=== PATIENT | female | born 1960 | race Caucasian/White ===

== ENCOUNTER → 2017-12-03 16:11 | Outpatient (CLI) | payer OTHER, SELFPAY ==
[2017-12-09 09:29] LABS: HPV Reflexed? NOT INDICATED
== END ==
PROVIDERS: Visit Provider Obstetrics & Gynecology
DX: Z12.4 Encounter for screening for malignant neoplasm of cervix (principal)
CPT/HCPCS: 88175; G0145

== ENCOUNTER → 2020-02-29 | Outpatient (CLI) | payer OTHER, SELFPAY ==
[2017-12-25 07:57] VITALS: BMI 22.1
[2020-03-02 18:27] LABS: HPV Reflexed? NOT INDICATED
== END | disposition home or self-care (01) ==
LOC: LABSPEC 11:37
PROVIDERS: PCP Family Medicine; Visit Provider Obstetrics & Gynecology
DX: Z12.4 Encounter for screening for malignant neoplasm of cervix (principal)
CPT/HCPCS: 88175; G0145

== ENCOUNTER → 2021-09-04 | Outpatient (CLI) | payer OTHER, SELFPAY ==
[2021-09-07 16:14] LABS: HPV Reflexed? NOT INDICATED
== END | disposition home or self-care (01) ==
LOC: LABSPEC 13:57
PROVIDERS: PCP Family Medicine; Visit Provider Obstetrics & Gynecology
DX: Z12.4 Encounter for screening for malignant neoplasm of cervix (principal)
CPT/HCPCS: 88175; G0145

== ENCOUNTER 2021-10-30 11:15 | Day surgery (SDC) | payer SELFPAY, OTHER ==
--- NOTE | 2021-10-30 11:56 | PCM.HP.BLA ---
History and Physical Date of Admission: 10/30/21 ISAÍAS FOX, is a 60 F who presents to the office today for recent C. difficile colitis. She developed diarrhea at the end of February 2021 no prior history of diarrhea.? She had urgency, fecal incontinence, abdominal cramping.? There was mucus as well as blood in the stool.? She tried dietary changes with only minimal relief.? Symptoms did seem to improve however returned with a vengeance in May and June.? At that time she tested positive for C. difficile.? She has had complete resolution of symptoms with vancomycin treatment.? No prior history of C. difficile.? She had not been on antibiotics.? She had poor appetite before treatment, she lost 10 pounds.? Bowels are now regular.? She has a bowel movement approximately 4 times per week, no constipation, no straining.? No further blood in the stool.? Weight has stabilized.? Appetite is back to normal.? She has no nausea, vomiting, heartburn, dysphagia.? No abdominal pain. 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 She is very healthy, she is not on any medications.? She occasionally needs antibiotics for UTI. ROS Const Constitutional: No fatigue ENT ENT: No difficulty swallowing Gastro GI: Positive for bloating, constipation and excessive flatus; No abdominal pain, belching, change in bowel habits, change in stool character, coffee ground emesis, cramping, diarrhea, heartburn, difficulty swallowing, feeling full early, incontinent of stools, Vomiting blood/hematemesis, Blood in stool, loose stools, Black,tarry stools, nausea/dyspepsia, pain with swallowing, vomiting or other Musc Musculoskeletal: No joint pain Skin Skin: No yellowing of the eye or itchy eyes Psych Psychiatric: No anxiety and No depression Endo Endocrine: No fatigue Aller/Imm Allergy/Immunologic: No itchy eyes Augustine/Lymp Hematologic/Lymphatic: No easy bleeding or easy bruising Exam Const General: healthy appearing, comfortable, well developed and well groomed Nutritional Appearance: average body habitus Eyes General: appearance normal, both eyes and all related structures Resp Effort & Inspection: normal respiratory effort GI Inspection: normal to inspection Quality Reporting Tobacco Screening ([facility]) Smoking Status: Never smoker Assessment and Plan Assessment and Plan (1) History of Clostridioides difficile colitis: ?Status:?Acute (2) Colonoscopy planned: ?Status:?Acute ?Plan - Jasmin Christensen NP, SIGNING TEACHER-C: 60-year-old female with recent C. difficile colitis infection.? Symptoms have completely resolved with vancomycin therapy.? She is now on a daily probiotic and will continue that indefinitely.? If she needs antibiotics in the future we recommend she take vancomycin 125 mg twice daily 2 days prior to antibiotics if possible, during antibiotic treatment, and for 2 days afterwards.? She will be scheduled for screening colonoscopy since her last one was in 2010. I have re-examined the patient. There are no clinical changes since date of exam.
[2021-10-30 12:03] VITALS: BP 106/71; PULSE 58; RESP 16; TEMP 37.1; O2SAT 100; BMI 20.1
[2021-10-30] MEDS: Lactated Ringers 1,000 ML 15 ML IV (12:12)
[2021-10-30 13:27] VITALS: BP 106/71; BP 91/61; PULSE 59; RESP 16; TEMP 36.1; O2SAT 100
--- NOTE | 2021-10-30 13:27 | OP.COLON_ITS ---
Patient Name: Juani Perry Procedure Date: 10/30/2021 12:52 PM Date of : 1960 Age: 61 Procedure: Colonoscopy Indications: Screening for colorectal malignant neoplasm Providers: Wyatt King DO Referring MD: Wyatt King DO Medicines: Monitored Anesthesia Care Patient Profile: Last Colonoscopy: 10 years ago. Complications: No immediate complications. Procedure: Pre-Anesthesia Assessment: - Prior to the procedure, a History and Physical was performed, and patient medications and allergies were reviewed. The patient is competent. The risks and benefits of the procedure and the sedation options and risks were discussed with the patient. All questions were answered and informed consent was obtained. Patient identification and proposed procedure were verified by the physician in the pre-procedure area. Mental Status Examination: alert and oriented. Airway Examination: normal oropharyngeal airway and neck mobility. Respiratory Examination: clear to auscultation. CV Examination: normal. Prophylactic Antibiotics: The patient does not require prophylactic antibiotics. Prior Anticoagulants: The patient has taken no previous anticoagulant or antiplatelet agents. ASA Grade Assessment: II - A patient with mild systemic disease. After reviewing the risks and benefits, the patient was deemed in satisfactory condition to undergo the procedure. The anesthesia plan was to use moderate sedation / analgesia (conscious sedation). Immediately prior to administration of medications, the patient was re-assessed for adequacy to receive sedatives. The heart rate, respiratory rate, oxygen saturations, blood pressure, adequacy of pulmonary ventilation, and response to care were monitored throughout the procedure. The physical status of the patient was re-assessed after the procedure. After I obtained informed consent, the scope was passed under direct vision. Throughout the procedure, the patient's blood pressure, pulse, and oxygen saturations were monitored continuously. The colonoscope was introduced through the anus and advanced to the cecum, identified by appendiceal orifice and ileocecal valve. The colonoscopy was performed without difficulty. The patient tolerated the procedure well. The quality of the bowel preparation was fair. Scope In: 1:05:07 PM Scope Withdrawal Time 0 hours 7 minutes 29 seconds Scope Out: 1:20:24 PM Total Procedure Duration Time 0 hours 15 minutes 17 seconds Findings: The perianal and digital rectal examinations were normal. A moderate amount of stool was found in the recto-sigmoid colon, in the sigmoid colon, in the transverse colon and in the cecum, precluding visualization. The exam was otherwise without abnormality. Impression: - Preparation of the colon was fair. - Stool in the recto-sigmoid colon, in the sigmoid colon, in the transverse colon and in the cecum. - The examination was otherwise normal. - No specimens collected. Recommendation: - Discharge patient to home. - Resume previous diet. - Continue present medications. - Repeat colonoscopy in 10 years for screening purposes. Procedure Code(s): --- Professional --- G0121, Colorectal cancer screening; colonoscopy on individual not meeting criteria for high risk CPT copyright 2017 [employer]. All rights reserved. The codes documented in this report are preliminary and upon mine surveyor review may be revised to meet current compliance requirements. Wyatt King DO 10/30/2021 1:26:44 PM This report has been signed electronically. Number of Addenda: 1 Note Initiated On: 10/30/2021 12:52 PM Addendum Number: 1 Addendum Date: 12/20/2021 6:19:36 AM MAC was used as sedation for this procedure. Wyatt King DO 12/20/2021 6:19:41 AM This report has been signed electronically.
--- NOTE | 2021-10-30 13:27 | OP.CCLET_ITS ---
12/20/2021 Cadence Rodriguez Md Re : Colonoscopy procedure for Juani Perry Dear Jennifer This procedure was performed on Saturday, October 30, 2021. My impressions and recommendations are as follows: Impressions : - Preparation of the colon was fair. - Stool in the recto-sigmoid colon, in the sigmoid colon, in the transverse colon and in the cecum. - The examination was otherwise normal. - No specimens collected. Recommendations : - Discharge patient to home. - Resume previous diet. - Continue present medications. - Repeat colonoscopy in 10 years for screening purposes. My findings are described in the full procedure note, which is enclosed. If I can be of further assistance, please feel free to contact me at . Sincerely, Wyatt Friend, 10/30/2021 1:26:44 PM This report has been signed electronically.
[2021-10-30 13:30] VITALS: BP 106/71; BP 88/59; PULSE 57; RESP 16; O2SAT 100
[2021-10-30 13:35] VITALS: BP 106/71; BP 96/60; PULSE 54; RESP 16; O2SAT 100
[2021-10-30 13:44] VITALS: BP 106/71; BP 96/66; PULSE 63; RESP 16; TEMP 36.2; O2SAT 100
[2021-10-30 14:05] VITALS: BP 106/71
== END 2021-10-30 14:23 | disposition home or self-care (01) ==
LOC: EN 11:27 → AC 11:27
PROVIDERS: PCP Family Medicine; Referring Provider Family Medicine; Visit Provider Internal Medicine Gastroenterology
PROC: 0DJD8ZZ Inspection of Lower Intestinal Tract, Via Natural or Artificial Opening Endoscopic (ICD-10-PCS; CPT 45378; principal; 2021-10-30 12:25)
DX: Z12.11 Encounter for screening for malignant neoplasm of colon (principal); Z86.19 Personal history of other infectious and parasitic diseases; Z86.16 Personal history of COVID-19
CPT/HCPCS: 45378; J7120; J2405

== ENCOUNTER → 2023-10-15 | Outpatient (CLI) | payer BC, OTHER, SELFPAY ==
[2023-10-15 10:23] LABS: ALB/GLOB Ratio 1.1 RATIO (0.9-2.4); AST(SGOT) 17 U/L (15-37); Alanine Aminotransfer ALT/SGPT 19 U/L (13-56); Albumin, Serum 3.6 g/dL (3.2-5.0); Alkaline Phosphatase 57 U/L (45-117); Anion Gap 3 (5-15); BUN 15 mg/dL (7-18); BUN/Creat Ratio 17.6 RATIO (10-20); Calcium,Total 9.1 mg/dL (8.5-10.1); Chloride 109 mmol/L (98-107); Cholesterol 205 mg/dL (200); Creatinine, Serum 0.85 mg/dL (0.55-1.02); EST Glomerular Filtration Rate 72 mL/min (>60); Est Glom Filt Rate - Afr Amer 87 mL/min (>60); Globulin 3.4 g/dL (2.2-4.2); Glucose 88 mg/dL (74-106); High Density Lipoprotein 57 mg/dL; Potassium 3.8 mmol/L (3.5-5.1); Sodium Level 141 mmol/L (136-145); T4 Free Direct 0.87 ng/dL (0.76-1.46); Thyroid Stim Hormone (TSH) 1.41 uIU/mL (0.358-3.74); Triglycerides 69 mg/dL; Very Low Density Lipoprotein 14 mg/dL (5-40)
[2023-10-15 11:36] LABS: Vitamin B12 398 pg/mL (211-911); Vitamin D,25 Hydroxy 66.2 ng/mL
== END | disposition home or self-care (01) ==
PROVIDERS: PCP Family Medicine; Referring Provider Nurse Practitioner Family; Visit Provider Nurse Practitioner Family
DX: Z13.1 Encounter for screening for diabetes mellitus (principal); Z13.220 Encounter for screening for lipoid disorders
CPT/HCPCS: 36415; 80053; 80061; 82306; 82607; 84439; 84443

== ENCOUNTER → 2024-01-16 | Outpatient (CLI) | payer BC, OTHER, SELFPAY ==
--- NOTE | 2024-01-16 15:53 | VDUE_ITS ---
Reason For Study: Left arm pain Left Proximal Left jugular vein is spontaneous, widely patent, phasic, with no intraluminal echogenicity noted. Left subclavian vein is spontaneous, widely patent, phasic, with no intraluminal echogenicity noted. Left Arm Left axillary vein is spontaneous, patent, phasic, competent, compressible and demonstrates augmentation. Left brachial vein is compressible. Left cephalic vein is compressible. Left basilic vein is compressible. Left Lower Arm Left radial vein is compressible. Left ulnar vein is compressible. Patient Safety Preliminary report gven to Dr. Leyva. VL/Venous Duplex US, Unilateral Interpretation Summary Deep veins of the left upper extremity are patent and compressible segmentally. There is no evidence of deep vein thrombosis. The superficial veins of the left upper extremity, the basilic and cephalic veins, are patent and compressible. There is no evidence of left upper extremit y superficial thrombophlebitis involving the veins imaged. Ordering Physician: Terrance Leyva Referring Physician: Cadence Rodriguez Performed By: Rhonda Gonzalez RVT ???
== END | disposition home or self-care (01) ==
LOC: CVS 15:48
PROVIDERS: PCP Family Medicine; Referring Provider Student in an Organized Health Care Education/Training Program; Visit Provider Student in an Organized Health Care Education/Training Program
DX: M79.622 Pain in left upper arm (principal)
CPT/HCPCS: 93971